=== PATIENT | male | born 1990 | race African-American/Black ===

== ENCOUNTER 2021-12-03 01:08 | Emergency (ER) | payer BC ==
[~2021-12-03] VITALS: Ht 175.3 cm; Wt 73.0 kg
[2021-12-03] MEDS ORDERED: IBUPROFEN 600MG TABLET PO ONE (02:00)
[2021-12-03 03:19] VITALS: BP 125/76
[2021-12-03 03:55] LABS: CLARITY URINE CLEAR (CLEAR); COLOR URINE YELLOW (YELLOW); KETONES URINE NEGATIVE (NEGATIVE); LEUKOCYTE ESTERASE URINE NEGATIVE (NEGATIVE); NITRITE URINE NEGATIVE (NEGATIVE); OCCULT BLOOD URINE NEGATIVE (NEGATIVE); PROTEIN URINE NEGATIVE (NEGATIVE); SPECIFIC GRAVITY URINE 1.021 (1.005-1.030); UROBILINOGEN URINE 0.2 E.U./dL (0.2-1.0)
== END 2021-12-03 04:19 | disposition home or self-care (01) ==
LOC: ER 01:08
DX: N50.811 Right testicular pain (principal); M79.604 Pain in right leg; R03.0 Elevated blood-pressure reading, without diagnosis of hypertension
CPT/HCPCS: 76870; 81003; 93976; 99284